=== PATIENT | female | born 1930 | race Caucasian/White ===

== ENCOUNTER 2018-07-30 09:16 | Outpatient (CLI) | payer MEDICARE, OTHER ==
--- NOTE | 2018-07-30 12:07 | ULT ---
RIGHT UPPER QUADRANT ULTRASOUND: HISTORY: Elevated LFTs. Abdominal pain. FINDINGS: Real-time imaging of the right upper quadrant shows the gallbladder to have been removed. The common duct is dilated. It measures in the 1 cm range. This could be on the basis of the cholecystectomy. The liver is mildly heterogeneous and measures approximately 14 cm in length. No focal lesions. The right kidney is normal in size and is not obstructed. The pancreas is obscured. IMPRESSION: Postoperative cholecystectomy change with mild biliary ductal dilatation. The common duct measures i n the 1 cm range. This could be on the basis of the cholecystectomy. Correlation with bilirubin jian ues would be recommended. POS: SHAYY
== END 2018-07-30 09:17 | disposition home or self-care (01) ==
LOC: ULT 09:16
PROVIDERS: ATTEND Internal Medicine Rheumatology
DX: R10.9 Unspecified abdominal pain (principal); R94.5 Abnormal results of liver function studies; K83.8 Other specified diseases of biliary tract; Z90.49 Acquired absence of other specified parts of digestive tract
CPT/HCPCS: 76705

== ENCOUNTER 2018-10-01 08:23 | Outpatient (CLI) | payer MEDICARE, OTHER | END 2018-10-01 08:24 | disposition home or self-care (01) | LOC: BICMAMMO 08:23 | PROVIDERS: ATTEND Family Medicine | DX: Z12.31 Encounter for screening mammogram for malignant neoplasm of breast (principal); Z80.3 Family history of malignant neoplasm of breast | CPT/HCPCS: 77063; 77067 ==

== ENCOUNTER 2019-08-07 08:51 | Outpatient (CLI) | payer MEDICARE, OTHER ==
--- NOTE | 2019-08-07 09:21 | BD ---
DEXA BONE DENSITY SCAN: Date: 08/07/2019 COMPARISON: None HISTORY: Asymptomatic menopausal state. FINDINGS: Lumbar Spine BMD (g/cm2) L1 1.139 T-Score 1.4 L2 1.229 T-Score 1.8 L3 1.184 T-Score 0.9 L4 1.113 T-Score 0.5 L1-L4 1.176 T-Score 1.2 Femoral Neck 0.738 T-Score -1.0 Total Femur 0.998 T-Score 0.5 FRAX-WHO fracture risk assessment tool was not reported as all T-scores are at or above -1.0 IMPRESSION: Normal bone mineral density exam. Transcribed Date/Time: 08/07/2019 11:01 AM
== END 2019-08-07 08:52 | disposition home or self-care (01) ==
LOC: BICMAMMO 08:51
PROVIDERS: ATTEND Internal Medicine Rheumatology
DX: Z13.820 Encounter for screening for osteoporosis (principal); Z78.0 Asymptomatic menopausal state; M85.859 Other specified disorders of bone density and structure, unspecified thigh
CPT/HCPCS: 77080

== ENCOUNTER 2019-10-05 13:52 | Outpatient (CLI) | payer MEDICARE, OTHER ==
--- NOTE | 2019-10-05 17:31 | MMO ---
Bilateral MAMMO Bilat Screen [id number]. CLINICAL HISTORY: Patient is 89 years old and is seen for screening. The patient has the following family history of breast cancer: mother, at age 65, malignant (generic). The patient has no personal history of cancer. 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 VIEWS: The views performed were: bilateral craniocaudal with tomosynthesis and bilateral mediolateral oblique with tomosynthesis. FILMS COMPARED: The present examination has been compared to a prior imaging study performed at [facility] on 10/01/2018. This study has been interpreted with the assistance of computer-aided detection. MAMMOGRAM FINDINGS: The breasts are almost entirely fat. There are no suspicious masses, suspicious calcifications, or new areas of architectural distortion. IMPRESSION: THERE IS NO MAMMOGRAPHIC EVIDENCE OF MALIGNANCY. A ROUTINE FOLLOW-UP MAMMOGRAM IN 1 YEAR IS RECOMMENDED. THE RESULTS OF THIS EXAM WERE SENT TO THE PATIENT. ACR BI-RADS Category 1 - Negative MAMMOGRAPHY NOTE: 1. A negative mammogram report should not delay a biopsy if a dominant of clinically suspicious mass is present. 2. Approximately 10% to 15% of breast cancers are not detected by mammography. 3. Adenosis and dense breasts may obscure an underlying neoplasm. Reported by: GAIL TONY MD Electonically Signed: [id number]
== END 2019-10-05 13:53 | disposition home or self-care (01) ==
LOC: BICMAMMO 13:52
PROVIDERS: ATTEND Family Medicine
DX: Z12.31 Encounter for screening mammogram for malignant neoplasm of breast (principal); Z80.3 Family history of malignant neoplasm of breast
CPT/HCPCS: 77063; 77067

== ENCOUNTER 2019-11-23 07:35 | Inpatient (IN) | payer MEDICARE, OTHER ==
[2019-11-23] MEDS ORDERED: Ondansetron PF 4 MG/2 ML Vial ONE (08:08)
[2019-11-23] MEDS ORDERED: Fentanyl 100 MCG/2 ML VIAL ONE ×3 (08:08→11:13)
[2019-11-23 08:19] LABS: Hemoglobin 13.4 g/dL (12.0-16.0); Mean Corpuscular HGB CONC 32.8 g/dL (32.0-36.0); Mean Corpuscular Hemoglobin 33.5 pg (27.0-31.0); Mean Platelet Volume 8.2 fL (7.4-10.4); Platelet Count 201 thou/uL (130-400); RBC Distribution Width 13.5 % (11.5-14.5); Red Blood Cell (RBC) Count 4.01 mill/uL (4.20-5.40); White Blood Cell (WBC) Count 14.8 thou/uL (4.8-10.8)
[2019-11-23 08:37] LABS: ALT (SGPT) 66 U/L (8-55); AST (SGOT) 76 U/L (5-34); Albumin 3.4 g/dL (3.4-4.8); Alkaline Phosphatase 423 U/L (40-110); Anion Gap 15 mmol/L (10-20); BUN (Urea Nitrogen) 19 mg/dL (9.8-20.1); Calc. Creatinine Clearance 0 mL/min (70-130); Calcium 9.5 mg/dL (7.8-10.44); Carbon Dioxide 27 mmol/L (23-31); Chloride 94 mmol/L (98-107); Estimated GFR-MDRD 77; Globulin 3.8 g/dL (2.4-3.5); Glucose 108 mg/dL (83-110); Potassium 3.4 mmol/L (3.5-5.1); Protein, Total 7.2 g/dL (6.0-8.3); Sodium 133 mmol/L (136-145)
[2019-11-23 08:39] LABS: Band 13 % (5-11); Lymphocytes 5 % (21-51); MDiff Complete? YES; Macrocytosis SLIGHT = 6-15 cells (100X) (0-5/hpf); Monocytes 5 % (0-10); Neutrophil 77 % (42-75)
[2019-11-23 08:51] LABS: Lipase 3900 U/L (8-78)
[2019-11-23 10:21] LABS: Bilirubin 2+ (Negative); Blood, Urine Negative (Negative); Clarity Clear (Clear); Glucose, Urine (Dipstick) Normal (Negative); Leukocyte Negative Leu/uL (Negative); Nitrite Negative (Negative); Protein, Urine (Dipstick) 20 mg/dL (Neg-Trace); Urobilinogen 6 mg/dL (Less than 2)
--- NOTE | 2019-11-23 10:52 | CT ---
CT ABDOMEN AND PELVIS WITH IV CONTRAST 11/23/2019 CLINICAL INFORMATION: Abdominal pain for last 2 days. Patient states pain begins at the level of the umbilicus and extends inferiorly with radiation of pain to the back. Nausea. COMPARISON: 07/07/2014. Technique: Multiple contiguous axial CT images are obtained through the abdomen and pelvis with IV contrast. Cor onal reformatted images are provided. FINDINGS: Lower Chest: A trace right pleural effusion is present. Volume loss is seen at each lung base. The he art is enlarged. Calcifications mitral valve annulus are seen. Vessels: Vascular calcifications and atherosclerotic plaque is seen in the abdominal aorta and involv ing the iliac arteries. Abdomen: Portal vein:Patent Gallbladder: Surgically absent. Liver: There is intra and extrahepatic biliary ductal dilatation without focal hepatic mass visualize d. The common duct at the level of the pancreatic head measures 1.6 cm. There are 2 separate rounded areas of increased density seen in the distal common duct largest measuring 1.3 cm. Findings are most likely related to choledocholithiasis, but a mass lesion cannot be entirely excluded. Endoscopy is recommended. Spleen: within normal limits. Pancreas: There is mild dilatation of the pancreatic duct secondary to the above-described findings. No definite pancreatic mass is appreciated. Adrenals: within normal limits. Kidneys: There is been mild interval enlargement of a right parapelvic cystic lesion measuring 1.6 cm which does demonstrate attenuation coefficient most compatible with a cyst. There has been slight enlargement when compared to the prior exam. Kidneys otherwise have a normal CT appearance bilaterall y for phase of imaging. Bowel: Small hiatal hernia is present. Loops of small bowel are normal in caliber. A few scattered co lonic diverticuli are seen. There are loops of small bowel seen lateral to the descending colon. Appendix: There is suggestion of a small appendiceal stump without CT findings to suggest appendiciti s Peritoneum: No ascites or free air; no fluid collection. Mesentery and Retroperitoneum: No enlarged mesenteric or retroperitoneal lymph nodes. Abdominal Wall: within normal limits. Pelvis: Reproductive Organs: Evidence of hysterectomy. Pelvis within normal limits. Bladder: Decompressed. Bones: Postsurgical changes right hip are noted with antegrade intramedullary chandni with a proximal int erlocking screw. There is evidence of a fracture of the distal interlocking screw, but this is a stable finding compared to the study in 2013. Multilevel degenerative changes are seen throughout the visualized lower thoracic as well as involving the lumbar spine. There is mild grade 1 anterolisthesis of L5 on S1 and to a lesser degree trace anterolisthesis of L4 and L5 related promine nt facet hypertrophic changes. A 1.5 cm lytic lesion is seen in the L2 vertebral body which is difficult to further characterize on this exam. Nonemergent MRI is suggested for further evaluation. IMPRESSION: 1. Intra and extrahepatic biliary ductal dilatation with rounded areas of increased density material in the distal common duct which most likely represents choledocholithiasis. A mass lesion cannot be entirely excluded. Endoscopy is recommended for further evaluation. 2. Lytic lesion in the L2 vertebral body measuring 1.5 cm. This difficult to further characterize on this exam. Nonemergent MRI lumbar spine is recommended. 3. Small hiatal hernia. 4. Small cardiomegaly. 6. Mild enlargement of a right parapelvic renal cyst. 7. Additional findings as described above. 8. Above findings discussed with Dr. Conner in the emergency department on 11/23/2019 at 1047 hours.
[2019-11-23] MEDS ORDERED: metroNIDAZOLE 500 MG/100 ML BAG ONE (12:15)
[2019-11-23] MEDS ORDERED: Acetaminophen 325 MG TAB PO PRN (12:58)
[2019-11-23] MEDS ORDERED: Acetaminophen 650 MG Suppository PR PRN (12:58)
[2019-11-23] MEDS ORDERED: Bisacodyl 5 MG TAB PO PRN (12:58)
[2019-11-23] MEDS ORDERED: Sodium Chloride 0.9% 1,000 ML IV SCH (13:00)
[2019-11-23] MEDS ORDERED: Ketorolac Tromethamine 30 MG/ML VIAL IVP PRN (13:00)
[2019-11-23] MEDS ORDERED: Fentanyl 100 MCG/2 ML VIAL SLOW IVP PRN ×2 (13:00→13:01)
--- NOTE | 2019-11-23 13:50 | CON ---
DATE OF CONSULTATION: 11/23/2019 REASON FOR CONSULTATION: Choledocholithiasis. HISTORY OF PRESENT ILLNESS: Breann Mosquera is a very pleasant 89-year-old woman, a patient of my GI colleague, Dr. Sissy Ceballos. 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 Back in June 2014, she was hospitalized here with biliary pancreatitis and LFT elevation. She underwent laparoscopic cholecystectomy with Dr. Kwok on 07/08/2014 with a negative intraoperative cholangiogram at that time. The patient reports no chronic gastrointestinal symptoms of any significance, but for the past several weeks intermittently off and on, she has been having abdominal pain in the upper abdomen and periumbilical area. Then over the past 3 days, it has gotten much more severe and much more frequent at least every hour. There has been associated nausea and she had a single episode of nonbloody emesis. There has been no fever through all this, but the pain progressed to the point that she came into the emergency department today. Upon presentation, she is found to be afebrile and hemodynamically stable, but with lipase elevated as 3900 and significant LFT elevation as well with total bilirubin 9.0, alkaline phosphatase 423. She had a CT of the abdomen and pelvis and this demonstrates absent gallbladder, but intra and extra hepatic biliary dilation with the common bile duct measuring up to 1.6 cm and a couple of rounded filling defects in the distal common bile duct, which likely represent stones. The patient has received Levaquin and Flagyl and is being admitted to the medical floor. We are consulted due to the finding of what appears to be choledocholithiasis. REVIEW OF SYSTEMS: Full review of systems including constitutional, head, eyes, ears, nose, throat, GI, , cardiovascular, respiratory, musculoskeletal, neurologic systems is negative except as noted in the HPI. PAST MEDICAL HISTORY: Cholecystectomy with negative intraoperative cholangiogram in June 2014, GERD, Waterman's esophagus, cervical radiculopathy, hypothyroidism, hysterectomy, bilateral knee surgery, shoulder surgery, history of colon polyps, hypertension, rhinoseptoplasty, and bilateral cataract. SOCIAL HISTORY: The patient lives at home. No smoking, alcohol, or drug use. FAMILY HISTORY: Includes coronary artery disease. She had a daughter with colon cancer. ALLERGIES: PENICILLIN, MORPHINE, CODEINE, AND SULFA. OUTPATIENT MEDICATIONS: 1. Atenolol. 2. Furosemide 40 mg daily. 3. Levothyroxine. 4. Omeprazole 20 mg daily. 5. Potassium chloride 10 mEq daily. 6. Folic acid 1 mg daily. 7. Hydrocodone/acetaminophen every 6 hours p.r.n. 8. Vitamin D3 of 5000 units daily. 9. Coenzyme Q10. 10. Calcium. 11. Aspirin 81 mg daily. 12. Fish oil. PHYSICAL EXAMINATION: VITAL SIGNS: Temperature 98.8, pulse 73, blood pressure 112/66, and oxygen saturation 98% on room air. GENERAL: An 89-year-old woman, lying in bed comfortably, in no distress. MENTAL: She is alert and fully oriented, pleasant and conversational. She can give a detailed coherent history. SKIN: She is slightly jaundiced. No rash visible or palpable. EYES: Scleral icterus. Extraocular movements intact. ENT: Mucous membranes moist. No oral lesions. LYMPH: No submandibular or supraclavicular lymphadenopathy. THYROID: Nontender to palpation. HEART: Regular rate and rhythm. LUNGS: Clear to auscultation bilaterally. ABDOMEN: Bowel sounds are present. Soft. Tender to palpation in the upper abdomen and periumbilical area, but no guarding or rebound tenderness. EXTREMITIES: No peripheral edema. VESSELS: Radial pulses 2+ bilaterally. NEURO: Cranial nerves II through XII intact bilaterally. No focal deficits. LABORATORY STUDIES: WBC 14.8, hemoglobin 13.4, and platelets 201. BUN 19, creatinine 0.72, total bilirubin 9.0, alkaline phosphatase 423, AST 76, ALT 66, and albumin 3.4. Lipase is 3900. Urinalysis negative. IMAGING STUDIES: CT of the abdomen and pelvis demonstrates absent gallbladder. There is intra and extrahepatic biliary dilation with common bile duct measuring 1.6 cm. There are 2 densities in the distal common bile duct, likely representing stones measuring up to 1.3 cm. There is mild pancreatic ductal dilation. ASSESSMENT AND PLAN: 1. Biliary pancreatitis, recurrent. 2. Choledocholithiasis, based on characteristic CT features as well as elevated LFTs. The patient's presentation does seem consistent with acute recurrent biliary pancreatitis secondary to choledocholithiasis, given the CT findings as well as characteristic LFT elevation. She does have a mild leukocytosis, but no fever and she is hemodynamically stable. Pain is fairly well controlled, and I see no evidence of cholangitis. I agree with antibiotics, which have been initiated as well as supportive care with n.p.o. status and IV fluids. Trend the LFTs tomorrow. We will need to proceed with endoscopic retrograde cholangiopancreatography for clearance of the common bile duct and sphincterotomy, we will plan to get this done tomorrow. Thank you for the consultation. Please call anytime with questions or concerns or significant changes in the patient's clinical status. Job ID: [id number]
[2019-11-23 14:37] VITALS: BMI 29.0
[2019-11-23] MEDS ORDERED: Iopamidol-370 76% 500 ML 1 ML ONE (14:53)
[2019-11-23] MEDS ORDERED: Iopamidol 370 76% 50 ML VIAL FS ONE (14:53)
[2019-11-23] MEDS ORDERED: Ondansetron ODT 4 MG TAB PO PRN (15:02)
[2019-11-23] MEDS ORDERED: Promethazine HCl 25 MG/ML VIAL IM/IV PRN (15:04)
--- NOTE | 2019-11-23 15:31 | HP ---
PRIMARY CARE PROVIDER: Dr. Jimmy Coats. CHIEF COMPLAINT: Abdominal pain. HISTORY OF PRESENT ILLNESS: Ms. Mosquera is a pleasant 89-year-old lady, who was seen at [facility] on November 23, 2019. She underwent cholecystectomy in July 2014 for acute cholecystitis with biliary pancreatitis. She reports doing well following the surgery. Over the last couple of weeks, however, she started having abdominal pain. She describes it as below the umbilicus, nonradiating, 7/10 at its worst, sharp, no known aggravating or relieving factors. She was nauseous 3 days ago and vomited once 3 days ago. She denies any fevers. She presented to the emergency room because of ongoing abdominal pain. REVIEW OF SYSTEMS: All systems were reviewed and found to be negative except for the pertinent positives mentioned above. PAST MEDICAL HISTORY: Hiatal hernia, hypothyroidism, gastroesophageal reflux disease, and hypertension. PAST SURGICAL HISTORY: Cholecystectomy, rhinoseptoplasty, EGD, colonoscopy, hysterectomy, bilateral knee surgery, right shoulder surgery, left shoulder surgery, and bilateral cataract surgery. SOCIAL HISTORY: The patient denies tobacco use, alcohol use, or recreational drug use. FAMILY HISTORY: Significant for malignancy and coronary artery disease. ALLERGIES: CODEINE, LATEX, MORPHINE, PENICILLIN, AND SULFA. HOME MEDICATIONS: These need to be clarified, but appeared to include; 1. [place] p.r.n. 2. Zofran p.r.n. 3. Aspirin 325 mg daily. 4. Calcium 1200 mg daily. 5. Vitamin D3 5000 units daily. 6. Lasix 20 mg daily. 7. Levothyroxine 100 mcg daily. 8. Losartan 25 mg daily. 9. Centrum Silver 1 tablet daily. 10. Potassium chloride 10 mEq daily. 11. Tramadol p.r.n. 12. Coenzyme Q10 200 mg daily. 13. Ambien 5 to 10 mg at bedtime. PHYSICAL EXAMINATION: GENERAL: On examination, Ms. Mosquera is awake and alert, not in acute distress. VITAL SIGNS: She is afebrile. Blood pressure is 100/62, pulse 70, respiratory rate 16, and oxygen saturation 97% on room air. EYES: She has scleral icterus, no conjunctival pallor. ENT: Dry mucosal membranes. No oropharyngeal erythema or exudates. NECK: Supple, nontender, trachea is midline. RESPIRATORY: Accessory muscles of breathing are not active. Chest wall movements are symmetric bilaterally. Lungs are clear to auscultation without wheeze, rhonchi, or crepitations. CARDIOVASCULAR: S1 and S2 are heard, regular. Peripheral pulses palpable. ABDOMEN: Soft, epigastric tenderness. No guarding or rigidity. Bowel sounds are heard. NEUROLOGIC: Cranial nerves 2 through 12 are intact. MUSCULOSKELETAL: Power is 5/5 in all 4 extremities. SKIN: Cutaneous icterus. LYMPHATIC: No cervical lymphadenopathy. PSYCHIATRIC: Normal mood, normal affect, the patient is oriented to person, place, and time. LABORATORY DATA: Ms. Mosquera's labs and investigations were reviewed. CT scan of the abdomen and pelvis showed intra and extrahepatic biliary ductal dilatation with rounded areas of increased density material in the distal common duct, which most likely represents choledocholithiasis. A mass lesion cannot be entirely excluded. Radiologist recommends endoscopy. She also had a lytic lesion in the L2 vertebral body measuring 1.5 cm, difficult to further characterize on this exam. She had small hiatal hernia, small cardiomegaly, mild enlargement of right parapelvic renal cyst. She has leukocytosis with 14,800 white cells, of which 77% are neutrophils and 13% are band neutrophils. Hemoglobin and platelet count are normal. Sodium is decreased at 133, potassium is decreased at 3.4, creatinine is normal. Total bilirubin is elevated at 9.0, AST is elevated at 76, ALT is elevated at 66, and alkaline phosphatase is elevated at 423. Lipase is elevated at 3900. ASSESSMENT AND PLAN: Ms. Mosquera is a pleasant 89-year-old lady, who was seen at [facility] on November 23, 2019. Her problem list includes: 1. Abnormal liver function tests: This is most likely secondary to choledocholithiasis. The patient will be admitted to the hospital for further management. We will also consult Gastroenterology Service for opinion and help with management. She will be kept n.p.o. LFTs will be trended. She has been started on antibiotics for possible infection. I will continue the same. 2. Hypokalemia, mild, we will replace potassium. 3. Hyponatremia, mild, likely asymptomatic. 4. Hypothyroidism: Continue levothyroxine. 5. Hypertension: Continue atenolol, monitor vital signs and titrate antihypertensives as needed. Many thanks for allowing me to participate in your patient's care. Please feel free to contact me with any questions or concerns. LEVEL OF RISK: Moderate. LEVEL OF COMPLEXITY: Moderate. Job ID: [id number]
[2019-11-23] MEDS: NS 0.9% w/ 20 MEQ KCL 1,000 ML/1,000 ML BAG IV SCH (17:57)
[2019-11-23] MEDS: metroNIDAZOLE 500 MG in Premix Bag 1 BAG IVPB SCH (20:32)
[2019-11-23] MEDS: Zolpidem Tartrate 5 MG TAB PO SCH (20:34)
[2019-11-24] MEDS: metroNIDAZOLE 500 MG in Premix Bag 1 BAG IVPB SCH ×3 (03:44→20:17)
[2019-11-24] MEDS: NS 0.9% w/ 20 MEQ KCL 1,000 ML/1,000 ML BAG IV SCH ×3 (03:44→20:19)
[2019-11-24] MEDS: Levothyroxine Sodium 100 MCG TAB PO SCH (05:17)
[2019-11-24 05:47] LABS: #Lymphocytes 0.9 thou/uL (1.20-3.40); #Monocytes 0.6 thou/uL (0.11-0.59); #Neutrophils 5.2 thou/uL (1.40-6.50); %Basophils 0.1 % (0.0-1.0); %Eosinophils 0.5 % (0.0-10.0); %Lymphocytes 12.8 % (21.0-51.0); %Monocytes 9.5 % (0.0-10.0); %Neutrophils 77.2 % (42.0-75.0); Hemoglobin 10.4 g/dL (12.0-16.0); Mean Corpuscular HGB CONC 31.2 g/dL (32.0-36.0); Mean Corpuscular Hemoglobin 32.1 pg (27.0-31.0); Platelet Count 176 thou/uL (130-400); RBC Distribution Width 13.4 % (11.5-14.5); Red Blood Cell (RBC) Count 3.23 mill/uL (4.20-5.40); White Blood Cell (WBC) Count 6.8 thou/uL (4.8-10.8)
[2019-11-24 06:22] LABS: ALT (SGPT) 37 U/L (8-55); AST (SGOT) 38 U/L (5-34); Albumin 2.4 g/dL (3.4-4.8); Alkaline Phosphatase 299 U/L (40-110); Anion Gap 13 mmol/L (10-20); BUN (Urea Nitrogen) 17 mg/dL (9.8-20.1); Bilirubin, Total 4.9 mg/dL (0.2-1.2); Calc. Creatinine Clearance 73 mL/min (70-130); Calcium 8.2 mg/dL (7.8-10.44); Carbon Dioxide 23 mmol/L (23-31); Chloride 104 mmol/L (98-107); Estimated GFR-MDRD Greater than 90; Globulin 2.9 g/dL (2.4-3.5); Glucose 73 mg/dL (83-110); Lipase 764 U/L (8-78); Potassium 3.1 mmol/L (3.5-5.1); Protein, Total 5.3 g/dL (6.0-8.3); Sodium 137 mmol/L (136-145)
[2019-11-24] MEDS ORDERED: Iothalamate Meglumine 60% 50 ML VIAL FS ONE (07:12)
[2019-11-24] MEDS ORDERED: Indomethacin 50 MG SUPP ONE (09:05)
[2019-11-24] MEDS ORDERED: SUGAMMADEX SODIUM 200 MG/2 ML VIAL ONE (09:16)
[2019-11-24] MEDS ORDERED: PROPOFOL 200 MG/20 ML VIAL ONE (09:45)
[2019-11-24] MEDS ORDERED: Rocuronium Bromide 10 MG/ML (10ML VIAL) ONE (09:45)
[2019-11-24] MEDS ORDERED: Ondansetron PF 4 MG/2 ML Vial ONE (09:45)
--- NOTE | 2019-11-24 10:39 | RAD ---
EXAM: ERCP HISTORY: Choledocholithiasis COMPARISON: CT abdomen/pelvis 11/23/2019 FINDINGS: Limited intraoperative fluoroscopic views were taken during a an ERCP. The common bile duct is enlarged in caliber with multiple filling defects initially seen. These are n ot seen on the latter images. No leakage from the common bile duct. There is moderate intrahepatic biliary dilatation. IMPRESSION: Multiple common bile duct stones appear to have been removed during this procedure.
[2019-11-24] MEDS: Atenolol 25 MG TAB PO SCH (11:40)
[2019-11-24] MEDS: Aspirin Chewable 81 MG TAB PO SCH (11:40)
[2019-11-24] MEDS: Fish Oil 1,000 MG CAP PO SCH (11:41)
[2019-11-24] MEDS: Calcium Carbonate 600 MG TAB PO SCH (11:41)
[2019-11-24] MEDS: Folic Acid 1 MG TAB PO SCH (11:41)
[2019-11-24] MEDS: Multivitamin W/ Minerals 1 TAB PO SCH (11:41)
[2019-11-24] MEDS: Ubidecarenone 50 MG CAP PO SCH (11:47)
--- NOTE | 2019-11-24 15:23 | PDOC.HOSPP ---
- Subjective Encounter Date: 11/24/19 Encounter Time: 15:21 Subjective: Pt seen for followup re: choledocholithiasis. Feels better. No abdo pain. - Objective Vital Signs & Weight: Vital Signs (12 hours) Temp Pulse Resp BP Pulse Ox 11/24/19 13:00 62 18 128/70 96 11/24/19 12:05 59 L 18 123/73 96 11/24/19 11:40 64 11/24/19 11:33 97.9 F 64 18 121/77 98 11/24/19 08:00 98 11/24/19 07:54 97.9 F 70 18 115/72 97 11/24/19 04:00 97.7 F 72 16 108/68 96 Weight Weight 159 lb I&O: 11/23/19 11/24/19 11/25/19 06:59 06:59 06:59 Intake Total 1250 Balance 1250 Result Diagrams: 11/24/19 05:15 11/24/19 05:15 Additional Labs: Labs and MARs reviewed by de Hospitalist ROS - Review of Systems Cardiovascular: denies: chest pain, palpitations, orthopnea, paroxysmal noc. dyspnea, edema, light headedness Gastrointestinal: denies: nausea, vomiting, abdominal pain, diarrhea, constipation, melena, hematochezia - Medication Medications: Active Medications Generic Name Dose Route Start Last Admin Trade Name Freq PRN Reason Stop Dose Admin Aspirin 81 mg 11/24/19 09:00 11/24/19 11:40 Aspirin Chewable PO Not Given DAILY [facility] Atenolol 25 mg 11/24/19 09:00 11/24/19 11:40 Tenormin PO Not Given DAILY [facility] Calcium Carbonate 1,200 mg 11/24/19 09:00 11/24/19 11:41 Caltrate PO Not Given DAILY [facility] Cholecalciferol 5,000 units 11/24/19 09:00 11/24/19 11:41 Vitamin D3 PO Not Given DAILY [facility] Coenzyme Q10 200 mg 11/24/19 09:00 11/24/19 11:47 Coenzyme Q10 PO Not Given DAILY [facility] Fentanyl 12.5 mcg 11/23/19 13:01 11/23/19 14:59 Sublimaze SLOW IVP 12.5 mcg Q8H PRN Administration Pain Fish Oil 1,000 mg 11/24/19 09:00 11/24/19 11:41 Fish Oil PO Not Given DAILY [facility] Folic Acid 1 mg 11/24/19 09:00 11/24/19 11:41 Folvite PO Not Given DAILY [facility] Metronidazole 500 mg/ Device 100 mls @ 100 mls/hr 11/23/19 20:00 11/24/19 11: 44 IVPB 100 mls 0400,1200,2000 DEANNA Administration Levofloxacin 500 mg/ Device 100 mls @ 100 mls/hr 11/24/19 11:00 11/24/19 11: 42 IVPB 100 mls 1100 DEANNA Administration Potassium Chloride/Sodium Chloride 1,000 ml in 1,000 mls @ 100 mls/hr 15:00 11/24/19 11:45 Ns 0.9% W/ 20 Meq Kcl IV Not Given .Q10H [facility] Iron/Minerals/Multivitamins 1 tab 11/24/19 09:00 11/24/19 11:41 Theragran M PO Not Given DAILY [facility] Levothyroxine Sodium 100 mcg 11/24/19 06:00 11/24/19 05:17 Synthroid PO 100 mcg 0600 DEANNA Administration Pantoprazole Sodium 40 mg 11/24/19 09:00 11/24/19 11:47 Protonix PO 40 mg DAILY [facility] Administration Zolpidem Tartrate 5 mg 11/23/19 21:00 11/23/19 20:34 Ambien PO 5 mg HS DEANNA Administration - Exam General Appearance: NAD Eye: scleral icterus ENT: normocephalic atraumatic Neck: supple Heart: RRR Respiratory: CTAB, no rales Gastrointestinal: soft, non-tender, normal bowel sounds Extremities: no edema Skin: no rashes Psychiatric: normal affect, normal behavior Hosp A/P (1) Choledocholithiasis Code(s): K80.50 - CALCULUS OF BILE DUCT W/O CHOLANGITIS OR CHOLECYST W/O OBST Status: Acute (2) Acute biliary pancreatitis Code(s): K85.10 - BILIARY ACUTE PANCREATITIS WITHOUT NECROSIS OR INFECTION Status: Acute (3) HTN (hypertension) Code(s): I10 - ESSENTIAL (PRIMARY) HYPERTENSION Status: Chronic (4) Hypothyroidism Code(s): E03.9 - HYPOTHYROIDISM, UNSPECIFIED Status: Chronic (5) GERD (gastroesophageal reflux disease) Code(s): K21.9 - GASTRO-ESOPHAGEAL REFLUX DISEASE WITHOUT ESOPHAGITIS Status: Chronic - Plan LFTs improving. s/p ERCP. Lipase improving. No fever. HTN controlled. Continue protonix.
--- NOTE | 2019-11-24 15:48 | OP ---
DATE OF PROCEDURE: 11/24/2019 PROCEDURES PERFORMED: 1. Endoscopic retrograde cholangiopancreatography with sphincterotomy. 2. Removal of biliary calculus. INDICATIONS FOR PROCEDURE: Choledocholithiasis, elevated LFTs. DESCRIPTION OF PROCEDURE: After the risks and benefits of the procedure were explained to the patient including risks of bleeding, infection, perforation, reactions to anesthesia, aspiration, post-ERCP pancreatitis, and/or pain, informed consent was obtained. The patient was then taken to the endoscopy suite, where a general anesthesia followed by endotracheal intubation was performed. Once the patient was intubated and sedated, she was maneuvered into the prone position in anticipation of the ERCP. Once in adequate position, the standard duodenoscope was introduced into the mouth with intubation of the esophagus, stomach, and the proximal small intestines with the findings listed below. The patient tolerated the procedure well with no immediate perioperative complications. Upon conclusion of the procedure, all equipment was removed from the patient and she was transferred to PACU in satisfactory condition. EGD FINDINGS: Limited views were obtained of the esophagus, stomach, and the proximal small intestine given the side-viewing aspect of the duodenoscope. Of the mucosa visualized, normal-appearing mucosa was seen in the proximal, mid, and distal esophagus. Normal-appearing mucosa was also seen within the stomach as well as the first and second portions of the duodenum. ERCP FINDINGS: The ampulla was easily identified within the second portion of the duodenum and was adjacent to a periampullary diverticulum. However, the ampulla itself was outside of the diverticulum. The ampullary orifice did exhibit mild mucosal erythema surrounding the orifice itself for approximately 1 mm in a radial dimension. The orifice itself also seemed somewhat widened, but no biliary fluid was seen, initially draining from the ampulla itself. Using a 5-mm sphincterotome, the ampulla was then successfully cannulated with a guidewire placed within the intrahepatic biliary tree. With advancing the sphincterotome into the distal common bile duct, a cholangiogram was performed, which showed multiple filling defects within the common bile as well as the common hepatic ducts. Again, using the sphincterotome, a generous sphincterotomy was then performed followed by exchanging the sphincterotome for a 9- to 12-mm biliary balloon via an exchange technique over guidewire. Once the balloon was in adequate position, it was advanced into the distal common bile duct over the guidewire, and using successive balloon sweeps, a large amount of biliary sludge/stone debris was removed from both the common bile and common hepatic ducts. In the proximal common hepatic duct, 3-4 small black pigmented stones were also removed in addition to large amount of sludge/stone debris (creating more of a mush). At the end of the procedure, successive balloon sweeps were not obtaining any additional material. An occlusion cholangiogram was then performed, which showed absence of filling defects within the common bile and common hepatic ducts, at which point the guidewire and the balloon were withdrawn. Repeat imaging of the common bile duct afterward showed good drainage of the biliary tree. All equipment was then removed from the patient and she was transferred to PACU. IMPRESSION: Choledocholithiasis and biliary sludge, resulting in biliary obstruction, now status post sphincterotomy and removal of biliary calculi. RECOMMENDATIONS: 1. Would continue to trend her LFTs daily while inpatient to assess response to treatment. 2. Would assess for signs of clinical post-ERCP pancreatitis. 3. Would advance the patient's diet to clear liquid diet and advance as tolerated. 4. Would continue broad-spectrum antibiotics while the patient is still in the hospital. We will continue to follow. Please call with any questions. Job ID: [id number]
[2019-11-24] MEDS: Zolpidem Tartrate 5 MG TAB PO SCH (20:18)
[2019-11-25] MEDS: metroNIDAZOLE 500 MG in Premix Bag 1 BAG IVPB SCH ×3 (03:25→12:58)
[2019-11-25] MEDS: Levothyroxine Sodium 100 MCG TAB PO SCH (05:12)
[2019-11-25] MEDS: Atenolol 25 MG TAB PO SCH (08:19)
[2019-11-25] MEDS: Calcium Carbonate 600 MG TAB PO SCH (08:19)
[2019-11-25] MEDS: Fish Oil 1,000 MG CAP PO SCH (08:19)
[2019-11-25] MEDS: Multivitamin W/ Minerals 1 TAB PO SCH (08:20)
[2019-11-25] MEDS: Folic Acid 1 MG TAB PO SCH (08:20)
[2019-11-25] MEDS: Aspirin Chewable 81 MG TAB PO SCH (08:20)
[2019-11-25] MEDS: Ubidecarenone 50 MG CAP PO SCH (08:21)
[2019-11-25] MEDS: NS 0.9% w/ 20 MEQ KCL 1,000 ML/1,000 ML BAG IV SCH (08:37)
[2019-11-25 09:00] LABS: #Eosinphils 0.1 thou/uL (0.0-0.7); #Lymphocytes 1.1 thou/uL (1.20-3.40); #Monocytes 0.7 thou/uL (0.11-0.59); %Basophils 0.6 % (0.0-1.0); %Eosinophils 1.4 % (0.0-10.0); %Lymphocytes 18.7 % (21.0-51.0); %Monocytes 11.2 % (0.0-10.0); Hemoglobin 11.8 g/dL (12.0-16.0); Mean Corpuscular Hemoglobin 33.7 pg (27.0-31.0); Mean Platelet Volume 7.7 fL (7.4-10.4); Platelet Count 218 thou/uL (130-400); RBC Distribution Width 13.6 % (11.5-14.5); Red Blood Cell (RBC) Count 3.51 mill/uL (4.20-5.40); White Blood Cell (WBC) Count 5.8 thou/uL (4.8-10.8)
[2019-11-25 09:19] LABS: ALT (SGPT) 34 U/L (8-55); AST (SGOT) 37 U/L (5-34); Albumin 2.8 g/dL (3.4-4.8); Alkaline Phosphatase 328 U/L (40-110); Anion Gap 12 mmol/L (10-20); BUN (Urea Nitrogen) 14 mg/dL (9.8-20.1); Bilirubin, Total 3.1 mg/dL (0.2-1.2); Calc. Creatinine Clearance 64 mL/min (70-130); Calcium 8.5 mg/dL (7.8-10.44); Carbon Dioxide 21 mmol/L (23-31); Chloride 107 mmol/L (98-107); Estimated GFR-MDRD 79; Globulin 3.1 g/dL (2.4-3.5); Glucose 114 mg/dL (83-110); Potassium 3.6 mmol/L (3.5-5.1); Protein, Total 5.9 g/dL (6.0-8.3); Sodium 136 mmol/L (136-145)
[2019-11-25 11:25] VITALS: TEMP 98.1
--- NOTE | 2019-11-25 12:05 | PRG ---
DATE OF SERVICE: 11/25/2019 SUBJECTIVE: Ms. Mosquera is doing quite well today following ERCP yesterday. She has had a couple of soft bowel movements. There is no abdominal pain or nausea or vomiting. She is tolerating her liquid diet and ready to advance diet for lunch today. OBJECTIVE: VITAL SIGNS: Temperature 98.1, pulse 61, blood pressure 105/62, and 97% oxygen saturation on room air. GENERAL: No acute distress. HEART: Regular rate and rhythm. LUNGS: Clear to auscultation bilaterally. ABDOMEN: Bowel sounds are present. Soft and nontender to palpation. EXTREMITIES: No peripheral edema. LABORATORY STUDIES: WBC is 5.8, hemoglobin 11.8, and platelets 218. Sodium 136, potassium 3.6, BUN 14, and creatinine 0.70. Total bilirubin is down to 3.1, alkaline phosphatase 328, AST 37, ALT 34, and lipase 413. ASSESSMENT/PLAN: 1. Biliary pancreatitis, clinically resolved. 2. Choledocholithiasis, with large amount of biliary sludge extracted on successful endoscopic retrograde cholangiopancreatography with biliary sphincterotomy performed yesterday by Dr. Chappell. The patient's LFTs have improved as expected after sphincterotomy and biliary sludge extraction. The patient's pancreatitis appears to have clinically resolved. I think the patient is doing well, tolerating her diet this afternoon. She could potentially be discharged from the hospital. We will plan to have her follow up in the GI Clinic with Dr. Ceballos in 2 to 3 weeks with repeat LFTs at that time. No other recommendations from a GI standpoint. GI will sign off, but please call back anytime with questions or concerns. Job ID: [id number]
[2019-11-25 16:10] VITALS: BP 126/77
--- NOTE | 2019-11-25 17:42 | DIS ---
DATE OF ADMISSION: 11/23/2019 DATE OF DISCHARGE: 11/25/2019 PRIMARY CARE PROVIDER: Dr. Jimmy Coats. DISCHARGE DIAGNOSES: 1. Choledocholithiasis. 2. Acute pancreatitis. CONDITION OF PATIENT ON THE DAY OF DISCHARGE: Stable. I assessed Ms. Mosquera on the day of discharge. She denies any chest pain. She denies any abdominal pain. Vital signs are stable. S1 and S2 are heard, regular. Lungs are clear to auscultation bilaterally. CONSULTATIONS DURING THIS HOSPITALIZATION: Gastroenterology, Dr. Cifuentes. POST-ACUTE CARE FOLLOWUP: With primary care provider in 3 days and with wellness nurse rn, Dr. Ceballos in 2 to 3 weeks. ACTIVITY: Ad mirtha. DIET: Heart healthy. DISCHARGE MEDICATIONS: No change was made to her pre-admission home medications as dictated in my history and physical note dated 11/23/2019. HOSPITAL COURSE: Ms. Mosquera is a pleasant 89-year-old lady, who was admitted to [facility] on 11/23/2019, for abdominal pain secondary to choledocholithiasis and acute biliary pancreatitis. She improved with intravenous fluids and pain medications. She was seen by Gastroenterology Service. On 11/24, she underwent ERCP with removal of biliary calculus and sphincterotomy. She continued to improve. She is tolerating diet well. She has been cleared for discharge home by Gastroenterology Service. On the day of discharge, she has white count 5800, hemoglobin 11.8, platelet count 218,000, normal sodium, normal potassium, creatinine 0.70, total bilirubin 3.1, AST 37, ALT 34, and alkaline phosphatase 328. Lipase trended down to 413 on the day of discharge. Many thanks for allowing me to participate in your patient's care. Please feel free to contact me with any questions or concerns. DISCHARGE DESTINATION: Home. TIME SPENT: Total amount of time spent coordinating this discharge: 32 minutes. Job ID: [id number]
== END 2019-11-25 15:53 | disposition home or self-care (01) | DRG 444 ==
LOC: ERS 07:35 → ERHOLD 09:47 → T4-B 13:41
PROVIDERS: ADMIT Internal Medicine; ATTEND Internal Medicine
PROC: 0FC98ZZ Extirpation of Matter from Common Bile Duct, Via Natural or Artificial Opening Endoscopic (ICD-10-PCS; principal; 2019-11-24)
DX: K80.51 Calculus of bile duct without cholangitis or cholecystitis with obstruction (principal); K85.10 Biliary acute pancreatitis without necrosis or infection; E87.1 Hypo-osmolality and hyponatremia; K80.20 Calculus of gallbladder without cholecystitis without obstruction; E03.9 Hypothyroidism, unspecified; K63.5 Polyp of colon; E87.6 Hypokalemia; K21.9 Gastro-esophageal reflux disease without esophagitis; I10 Essential (primary) hypertension; Z90.49 Acquired absence of other specified parts of digestive tract; Z90.710 Acquired absence of both cervix and uterus; Z98.42 Cataract extraction status, left eye; Z98.41 Cataract extraction status, right eye; Z88.0 Allergy status to penicillin; Z88.8 Allergy status to other drugs, medicaments and biological substances; Z88.6 Allergy status to analgesic agent; Z91.040 Latex allergy status; Z88.2 Allergy status to sulfonamides
CPT/HCPCS: 36415; 74177; 74330; 80053; 81003; 83690; 85025; 96361; 96365; 96367; 96375; 96376; J1885; J1956; J2405; J2704; J3010; J3480; Q9967

== ENCOUNTER 2019-12-02 11:50 | Outpatient (CLI) | payer MEDICARE, OTHER ==
--- NOTE | 2019-12-02 14:46 | CT ---
CT lumbar spine without contrast: HISTORY: Disorder of lumbar spine. COMPARISON: No prior CT exams of the lumbar spine available FINDINGS: Post cholecystectomy changes are noted. Vascular calcifications are seen. Paravertebral soft tissues have a normal appearance. There is atelectasis at the right lung base. Vertebral body heights are within normal limits with multilevel degenerative changes noted. There is trace grade 1 anterolisthesis of L4 on L5 and mild grade 1 anterolisthesis of L5 on S1 measuring 6 to 7 mm. No fracture is identified. As noted on CT abdomen on 11/23/2019, there is a lytic lesion in the L2 vertebral body measuring 1.5 c m. This lesion cannot be further characterized on this examination. Definitive characteristics suggestive of a hemangioma are not appreciated on this exam. T12-L1: Disc osteophyte complex is present resulting mild effacement of the ventral subarachnoid spac e. Neural foramina are patent. L1-2: There is loss of intervertebral disc height with evidence of vacuum phenomenon. Endplate degene rative changes are seen at this level. There is trace retrolisthesis of L1 on L2. Broad-based disc osteophyte complex is present which results in mild effacement of the ventral aspect of the thecal sa c. The left neural foramen is patent. There is moderate right-sided neural foraminal narrowing. L2-3: There is loss of intervertebral disc height with vacuum phenomenon in the intervertebral discs. Endplate degenerative changes are seen. There is a broad-based disc osteophyte complex and facet hypertrophic changes. Generalized narrowing of the central spinal canal is present. Mild to moderate right and mild left-sided neural foraminal narrowing is present. L3-4: There is a mild disc osteophyte complex. There are calcifications seen in the intervertebral di sc. Prominent facet hypertrophic changes are identified at this level. There is mild generalized narrowing of the central spinal canal. Mild bilateral neural foraminal narrowing is present greater o n the right. L4-5: There is loss of vertebral disc height and vacuum phenomenon with prominent endplate degenerati ve changes. Trace anterolisthesis of L4 on L5 is present. There is broad-based disc osteophyte complex and facet hypertrophic changes. Findings result in severe narrowing of the central spinal can al as well as moderate to severe narrowing of the left subarticular zone at this level. Moderate to severe left and mild right-sided neural foraminal narrowing are present. L5-S1: There is loss of intervertebral disc height with vacuum phenomenon in the intervertebral disc as well as prominent endplate degenerative changes. Grade 1 anterolisthesis of L5 on S1 is present. There are prominent facet hypertrophic changes. There is moderate central canal narrowing with modera te to severe bilateral neural foraminal narrowing. IMPRESSION: 1. Lytic lesion L2 vertebral body which cannot be accurately characterized on this examination. MRI l umbar spine is recommended for further evaluation. 2. Multilevel degenerative changes throughout the lumbar spine as described above with trace grade 1 anterolisthesis of L4 and L5 and mild grade 1 anterolisthesis of L5 on S1. Varying degrees of neural foraminal narrowing are seen with moderate to severe central canal narrowing at the L4-5 level and moderate central canal narrowing at the L5-S1 level.
== END 2019-12-02 11:51 | disposition home or self-care (01) ==
LOC: BICCT 11:50
PROVIDERS: ATTEND Family Medicine
DX: M53.9 Dorsopathy, unspecified (principal); M47.816 Spondylosis without myelopathy or radiculopathy, lumbar region; M47.817 Spondylosis without myelopathy or radiculopathy, lumbosacral region; M48.061 Spinal stenosis, lumbar region without neurogenic claudication; M48.07 Spinal stenosis, lumbosacral region; M43.17 Spondylolisthesis, lumbosacral region
CPT/HCPCS: 72131

== ENCOUNTER 2019-12-25 12:49 | Outpatient (CLI) | payer MEDICARE, OTHER ==
--- NOTE | 2019-12-25 14:31 | MRI ---
MR the lumbar spine without contrast: 12/25/2019 History: Back pain with radiculopathy, lytic lesion of the L2 vertebral body noted on recent CT exami nation COMPARISON: CT of lumbar spine 12/02/2019 TECHNIQUE: Multiplanar multisequence MR images were obtained of lumbar spine without IV contrast FINDINGS: On the basis of 5 lumbar type vertebral bodies, conus medullaris terminates at theL1-2 level. Sagittal STIR imaging demonstrates no focal area of osseous marrow edema. T12-L1:Disc space narrowing, disc desiccation, mild anterior osteophyte formation, and mild disc bulg e. Mild bilateral facet hypertrophy. No significant central canal or neural foraminal stenosis. L1-2:There is disc space narrowing with disc desiccation and mild posterior disc osteophyte complex. No significant central canal stenosis. Bilateral facet hypertrophy. Moderate/severe right neural foraminal stenosis. Mild left neural foraminal stenosis. L2-3:Prominent bilateral facet hypertrophy. Prominent degenerative endplate change with disc space na rrowing and disc desiccation. Disc osteophyte complex causes mild central canal stenosis. Moderate/severe bilateral neural foraminal stenosis. L3-4:Bilateral facet hypertrophy. Disc space narrowing with disc desiccation and mild disc bulge. Mil d central canal stenosis. Moderate bilateral neural foraminal stenosis. L4-5:Disc space narrowing with disc desiccation and disc bulge. Anterior osteophyte. 4 mm of anteroli sthesis noted. Prominent facet hypertrophy and hypertrophy of the ligamentum flavum. Severe central canal stenosis, mild right neural foraminal stenosis, and severe left neural foraminal stenosis. L5-S1:Disc space narrowing with disc desiccation. Anterolisthesis measuring 5 mm noted with a moderat e degree of central canal stenosis. Prominent bilateral facet hypertrophy with severe bilateral neural foraminal stenosis. Image retroperitoneal structures demonstratea probable cyst in the midpole of the right kidney measur ing 1.7 cm. There is mild intrahepatic and extrahepatic biliary prominence. Question a history of prior cholecyst ectomy. Correlation with LFTs may be beneficial. There is a T2 and T1 hyperintense lesion within the L2 vertebral body correlating with the finding on recent lumbar spine CT, consistent with a benign hemangioma. 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 Intra and extrahepatic saji iary prominence.
== END 2019-12-25 12:50 | disposition home or self-care (01) ==
LOC: BICMRI 12:49
PROVIDERS: ATTEND Family Medicine
DX: M89.9 Disorder of bone, unspecified (principal); M47.816 Spondylosis without myelopathy or radiculopathy, lumbar region; D18.09 Hemangioma of other sites
CPT/HCPCS: 72148

== ENCOUNTER 2020-10-10 13:14 | Outpatient (CLI) | payer MEDICARE, OTHER ==
--- NOTE | 2020-10-10 14:13 | BD ---
EXAM: DEXA bone density examination HISTORY: 89-year-old postmenopausal female for screening COMPARISON: 08/07/2019 FINDINGS: L1--bone mineral density 1.150 g/sq cm; T score 1.5 L2--bone mineral density 1.261 g/sq cm; T score 2.1 L3--bone mineral density 1.162 g/sq cm; T score 0.7 L4--bone mineral density 1.210 g/sq cm; T score 1.4 Total L1-L4--bone mineral density 1.192 g/sq cm; T score 1.3 Left femoral neck--bone mineral density0.715; T score -1.2 Total proximal left femur--bone mineral density 0.955; T score 0.1 IMPRESSION: Osteopenia. This patient has a 10 year WHO fracture risk of a major osteoporotic fracture of 14% and of a hip fracture of 4.0%. When compared to the prior examination, the bone density in the hip has decreased approximately 4.3% and the bone density in the spine has not changed significan tly.
--- NOTE | 2020-10-10 14:17 | MMO ---
Bilateral MAMMO Bilat Screen [id number]. CLINICAL HISTORY: Patient is 89 years old and is seen for screening. The patient has the following family history of breast cancer: mother, at age 65, malignant (generic). The patient has no personal history of cancer. 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 VIEWS: The views performed were: bilateral craniocaudal with tomosynthesis and bilateral mediolateral oblique with tomosynthesis. FILMS COMPARED: The present examination has been compared to prior imaging studies performed at [facility] on 09/09/2017, 09/17/2017, 10/01/2018 and 10/05/2019. This study has been interpreted with the assistance of computer-aided detection. MAMMOGRAM FINDINGS: There are scattered fibroglandular densities. There are benign appearing and vascular calcifications seen in both breasts. There are no suspicious masses, suspicious calcifications, or new areas of architectural distortion. IMPRESSION: THERE IS NO MAMMOGRAPHIC EVIDENCE OF MALIGNANCY. A ROUTINE FOLLOW-UP MAMMOGRAM IN 1 YEAR IS RECOMMENDED. THE RESULTS OF THIS EXAM WERE SENT TO THE PATIENT. ACR BI-RADS Category 2 - Benign finding MAMMOGRAPHY NOTE: 1. A negative mammogram report should not delay a biopsy if a dominant of clinically suspicious mass is present. 2. Approximately 10% to 15% of breast cancers are not detected by mammography. 3. Adenosis and dense breasts may obscure an underlying neoplasm. Reported by: ZEB FINCH MD Electonically Signed: [id number]
== END 2020-10-10 13:15 | disposition home or self-care (01) ==
LOC: BICMAMMO 13:14
PROVIDERS: ATTEND Family Medicine
DX: Z12.31 Encounter for screening mammogram for malignant neoplasm of breast (principal); Z13.820 Encounter for screening for osteoporosis; M85.852 Other specified disorders of bone density and structure, left thigh; Z78.0 Asymptomatic menopausal state; Z80.3 Family history of malignant neoplasm of breast
CPT/HCPCS: 77063; 77067; 77080

== ENCOUNTER 2021-03-26 01:43 | Inpatient (IN) | payer MEDICARE, OTHER ==
[2021-03-26 03:00] LABS: #Basophils 0.1 thou/uL (0.0-0.2); #Lymphocytes 1.1 thou/uL (1.20-3.40); #Monocytes 0.5 thou/uL (0.11-0.59); %Basophils 0.7 % (0.0-1.0); %Eosinophils 0.4 % (0.0-10.0); %Monocytes 5.9 % (0.0-10.0); %Neutrophils 78.9 % (42.0-75.0); Hemoglobin 11.1 g/dL (12.0-16.0); Mean Corpuscular HGB CONC 34.4 g/dL (32.0-36.0); Mean Corpuscular Hemoglobin 35.8 pg (27.0-31.0); Mean Platelet Volume 8.1 fL (7.4-10.4); Platelet Count 179 thou/uL (130-400); RBC Distribution Width 14.1 % (11.5-14.5); Red Blood Cell (RBC) Count 3.09 mill/uL (4.20-5.40); White Blood Cell (WBC) Count 7.7 thou/uL (4.8-10.8)
[2021-03-26 03:22] LABS: ALT (SGPT) 29 U/L (8-55); AST (SGOT) 57 U/L (5-34); Albumin 2.8 g/dL (3.4-4.8); Alkaline Phosphatase 96 U/L (40-110); Anion Gap 12 mmol/L (10-20); BUN (Urea Nitrogen) 16 mg/dL (9.8-20.1); Bilirubin, Total 1.2 mg/dL (0.2-1.2); Calc. Creatinine Clearance 0 mL/min (70-130); Calcium 9.4 mg/dL (7.8-10.44); Carbon Dioxide 29 mmol/L (23-31); Chloride 99 mmol/L (98-107); Glucose 144 mg/dL (83-110); Potassium 3.3 mmol/L (3.5-5.1); Protein, Total 6.8 g/dL (5.8-8.1); Sodium 137 mmol/L (136-145)
[2021-03-26] MEDS ORDERED: Furosemide 40 MG/4 ML VIAL ONE (03:45)
[2021-03-26] MEDS ORDERED: Aspirin 325 MG TAB ONE (03:47)
[2021-03-26 05:19] LABS: SARS-CoV-2 NAA Rapid Test Not Detected (NotDetected)
[2021-03-26 07:15] LABS: Troponin I 4.618 ng/mL (< 0.028)
[2021-03-26] MEDS ORDERED: Acetaminophen 325 MG TAB PO PRN (08:33)
[2021-03-26 09:55] LABS: Troponin I 4.476 ng/mL (< 0.028)
[2021-03-26 10:17] VITALS: BMI 26.4
[2021-03-26] MEDS: Aspirin 325 mg Enteric Coated Tablet PO SCH (10:25)
[2021-03-26] MEDS: Furosemide 40 MG/4 ML VIAL SLOW IVP SCH (10:27)
[2021-03-26] MEDS ORDERED: Potassium Chloride 20 MEQ TAB PO SCH (18:30)
[2021-03-27 05:45] LABS: #Basophils 0.1 thou/uL (0.0-0.2); #Eosinphils 0.1 thou/uL (0.0-0.7); #Lymphocytes 1.5 thou/uL (1.20-3.40); #Monocytes 0.7 thou/uL (0.11-0.59); #Neutrophils 4.8 thou/uL (1.40-6.50); %Basophils 0.7 % (0.0-1.0); %Eosinophils 0.9 % (0.0-10.0); %Lymphocytes 21.5 % (21.0-51.0); %Monocytes 9.7 % (0.0-10.0); %Neutrophils 67.3 % (42.0-75.0); Hemoglobin 11.3 g/dL (12.0-16.0); Mean Corpuscular HGB CONC 34.2 g/dL (32.0-36.0); Mean Corpuscular Hemoglobin 35.6 pg (27.0-31.0); Mean Platelet Volume 8.5 fL (7.4-10.4); Platelet Count 161 thou/uL (130-400); RBC Distribution Width 14.5 % (11.5-14.5); Red Blood Cell (RBC) Count 3.17 mill/uL (4.20-5.40); White Blood Cell (WBC) Count 7.1 thou/uL (4.8-10.8)
[2021-03-27 06:04] LABS: Anion Gap 11 mmol/L (10-20); BUN (Urea Nitrogen) 17 mg/dL (9.8-20.1); Calc. Creatinine Clearance 57 mL/min (70-130); Calcium 8.6 mg/dL (7.8-10.44); Carbon Dioxide 30 mmol/L (23-31); Cardiac Risk 3.8 (Less than 4.5); Chloride 101 mmol/L (98-107); Cholesterol 157 mg/dl (< 200 Desired); Glucose 109 mg/dL (83-110); HDL Cholesterol 41 mg/dL (>60 Neg Risk); LDL Cholesterol, Calculated 101 mg/dL; Sodium 139 mmol/L (136-145); Triglycerides 74 mg/dL (Less than 150)
[2021-03-27 06:10] LABS: Potassium 2.9 mmol/L (3.5-5.1)
[2021-03-27] MEDS: Levothyroxine Sodium 100 MCG TAB PO SCH (06:27)
[2021-03-27] MEDS ORDERED: Potassium Chloride 20 MEQ TAB PO SCH (06:30)
[2021-03-27] MEDS ORDERED: Potassium Chloride 40 MEQ in Sodium Chloride 0.9% 250 ML 250 ML IVPB SCH (07:00)
[2021-03-27] MEDS: Aspirin 325 mg Enteric Coated Tablet PO SCH (09:07)
[2021-03-27] MEDS: Cholecalciferol 1,000 UNITS (25 MCG) TAB PO SCH (09:07)
[2021-03-27] MEDS: Folic Acid 1 MG TAB PO SCH (09:07)
[2021-03-27] MEDS: Atenolol 25 MG TAB PO SCH (09:07)
[2021-03-27] MEDS: Multivitamin W/ Minerals 1 TAB PO SCH (09:07)
[2021-03-27] MEDS: Furosemide 40 MG/4 ML VIAL SLOW IVP SCH (09:08)
[2021-03-27] MEDS ORDERED: Polyethylene Glycol 3350 17 GM Packet PO PRN (12:33)
[2021-03-28] MEDS: Levothyroxine Sodium 100 MCG TAB PO SCH (05:28)
[2021-03-28 05:46] LABS: #Eosinphils 0.3 thou/uL (0.0-0.7); #Lymphocytes 1.8 thou/uL (1.20-3.40); #Monocytes 0.7 thou/uL (0.11-0.59); #Neutrophils 4.5 thou/uL (1.40-6.50); %Basophils 0.5 % (0.0-1.0); %Eosinophils 4.3 % (0.0-10.0); %Lymphocytes 24.5 % (21.0-51.0); %Monocytes 9.7 % (0.0-10.0); Hemoglobin 11.4 g/dL (12.0-16.0); Mean Corpuscular HGB CONC 33.6 g/dL (32.0-36.0); Mean Corpuscular Hemoglobin 35.4 pg (27.0-31.0); Mean Platelet Volume 8.4 fL (7.4-10.4); Platelet Count 163 thou/uL (130-400); RBC Distribution Width 14.6 % (11.5-14.5); Red Blood Cell (RBC) Count 3.22 mill/uL (4.20-5.40); White Blood Cell (WBC) Count 7.4 thou/uL (4.8-10.8)
[2021-03-28 06:07] LABS: Anion Gap 12 mmol/L (10-20); BUN (Urea Nitrogen) 17 mg/dL (9.8-20.1); Calc. Creatinine Clearance 58 mL/min (70-130); Calcium 9.1 mg/dL (7.8-10.44); Carbon Dioxide 28 mmol/L (23-31); Chloride 102 mmol/L (98-107); Glucose 106 mg/dL (83-110); Potassium 3.8 mmol/L (3.5-5.1); Sodium 138 mmol/L (136-145)
[2021-03-28] MEDS: Multivitamin W/ Minerals 1 TAB PO SCH (07:29)
[2021-03-28] MEDS: Atenolol 25 MG TAB PO SCH (07:29)
[2021-03-28] MEDS: Aspirin 325 mg Enteric Coated Tablet PO SCH (07:29)
[2021-03-28] MEDS: Folic Acid 1 MG TAB PO SCH (07:30)
[2021-03-28] MEDS: Cholecalciferol 1,000 UNITS (25 MCG) TAB PO SCH (07:30)
[2021-03-28] MEDS: Furosemide 40 MG/4 ML VIAL SLOW IVP SCH (07:31)
[2021-03-28] MEDS ORDERED: Magnesium Oxide 400 MG TAB PO SCH (10:45)
[2021-03-28] MEDS ORDERED: METHOTREXATE SC SCH (12:00)
[2021-03-28] MEDS ORDERED: Furosemide 40 MG/4 ML VIAL SLOW IVP SCH (15:00)
[2021-03-28] MEDS ORDERED: Communication Order-Pharmacy FS SCH (15:00)
[2021-03-28] MEDS ORDERED: Potassium Chloride 20 MEQ TAB PO SCH (15:00)
[2021-03-28] MEDS: Atorvastatin Calcium 40 MG TAB PO SCH (20:16)
[2021-03-28] MEDS: LUNESTA 2 MG PO PRN (21:49)
[2021-03-29] MEDS: Atenolol 25 MG TAB PO SCH (05:46)
[2021-03-29] MEDS: Aspirin 325 mg Enteric Coated Tablet PO SCH (05:47)
[2021-03-29] MEDS: Multivitamin W/ Minerals 1 TAB PO SCH (05:47)
[2021-03-29] MEDS: Cholecalciferol 1,000 UNITS (25 MCG) TAB PO SCH (05:47)
[2021-03-29] MEDS: Folic Acid 1 MG TAB PO SCH (05:47)
[2021-03-29] MEDS: Levothyroxine Sodium 100 MCG TAB PO SCH (05:47)
[2021-03-29] MEDS ORDERED: Sodium Chloride 0.9% 1,000 ML IV SCH ×2 (06:00→10:01)
[2021-03-29 06:01] LABS: Anion Gap 13 mmol/L (10-20); BUN (Urea Nitrogen) 18 mg/dL (9.8-20.1); Calc. Creatinine Clearance 54 mL/min (70-130); Calcium 8.9 mg/dL (7.8-10.44); Carbon Dioxide 27 mmol/L (23-31); Chloride 103 mmol/L (98-107); Glucose 87 mg/dL (83-110); Potassium 3.6 mmol/L (3.5-5.1); Sodium 139 mmol/L (136-145)
[2021-03-29] MEDS ORDERED: Heparin 10,000 UNITS/ 10 ML VIAL ONE (07:40)
[2021-03-29] MEDS ORDERED: Lidocaine 1% (PF) 30 ML VIAL ONE (08:03)
[2021-03-29] MEDS ORDERED: Fentanyl 100 MCG/2 ML VIAL ONE (08:33)
[2021-03-29] MEDS ORDERED: Midazolam HCl 2 mg/2 ml Vial ONE (08:33)
[2021-03-29] MEDS ORDERED: Protamine Sulfate 50 MG/5 ML VIAL ONE (09:24)
[2021-03-29] MEDS ORDERED: Iopamidol 370 76% 100 ML VIAL ONE (09:52)
[2021-03-29] MEDS ORDERED: Iopamidol 370 76% 50 ML VIAL FS ONE (09:52)
[2021-03-29] MEDS ORDERED: Nitroglycerin 0.4 MG TAB (25 Tab Bottle) SL PRN (09:56)
[2021-03-29] MEDS ORDERED: Sodium Chloride 0.9% 200 ML IV PRN (09:56)
[2021-03-29] MEDS: Furosemide 40 MG/4 ML VIAL SLOW IVP SCH (10:23)
[2021-03-29] MEDS: Atorvastatin Calcium 40 MG TAB PO SCH (19:54)
[2021-03-29] MEDS: LUNESTA 2 MG PO PRN (22:17)
[2021-03-30] MEDS: Levothyroxine Sodium 100 MCG TAB PO SCH (06:13)
[2021-03-30 06:34] LABS: Anion Gap 10 mmol/L (10-20); BUN (Urea Nitrogen) 16 mg/dL (9.8-20.1); Calc. Creatinine Clearance 61 mL/min (70-130); Calcium 8.7 mg/dL (7.8-10.44); Carbon Dioxide 28 mmol/L (23-31); Chloride 103 mmol/L (98-107); Glucose 87 mg/dL (83-110); Potassium 3.4 mmol/L (3.5-5.1); Sodium 138 mmol/L (136-145)
[2021-03-30] MEDS ORDERED: Furosemide 40 MG TAB PO SCH (07:30)
[2021-03-30] MEDS: Cholecalciferol 1,000 UNITS (25 MCG) TAB PO SCH (07:47)
[2021-03-30] MEDS: Multivitamin W/ Minerals 1 TAB PO SCH (07:47)
[2021-03-30] MEDS: Atenolol 25 MG TAB PO SCH (07:48)
[2021-03-30] MEDS: Aspirin 325 mg Enteric Coated Tablet PO SCH (07:48)
[2021-03-30] MEDS: Folic Acid 1 MG TAB PO SCH (07:49)
[2021-03-30 07:53] VITALS: BP 124/59
[2021-03-30] MEDS ORDERED: Potassium Chloride 20 MEQ TAB PO SCH (08:00)
[2021-03-30 08:09] VITALS: TEMP 98.3
[2021-03-31] MEDS ORDERED: Potassium Chloride 10 MEQ TAB PO SCH (08:00)
[2021-03-31] MEDS ORDERED: Calcium Carbonate 600 MG TAB PO SCH (09:00)
[2021-04-04] MEDS ORDERED: [UNRECOGNIZED DRUG - OTHER] SQ SCH (09:00)
[2021-04-04] MEDS ORDERED: METHOTREXATE SQ SCH (09:00)
== END 2021-03-30 10:52 | disposition home or self-care (01) | DRG 280 ==
LOC: SUATTDRO 01:43 → ERS 01:43 → 2SW 04:12 → OBSVTOIN 08:32
PROVIDERS: ADMIT Internal Medicine; ATTEND Internal Medicine
PROC: 5A09357 Assistance with Respiratory Ventilation, Less than 24 Consecutive Hours, Continuous Positive Airway Pressure (ICD-10-PCS; 2021-03-26)
PROC: 4A023N8 Measurement of Cardiac Sampling and Pressure, Bilateral, Percutaneous Approach (ICD-10-PCS; principal; 2021-03-29)
PROC: B2111ZZ Fluoroscopy of Multiple Coronary Arteries using Low Osmolar Contrast (ICD-10-PCS; 2021-03-29)
PROC: B2161ZZ Fluoroscopy of Right and Left Heart using Low Osmolar Contrast (ICD-10-PCS; 2021-03-29)
DX: I08.3 Combined rheumatic disorders of mitral, aortic and tricuspid valves (principal); K85.10 Biliary acute pancreatitis without necrosis or infection; I21.A1 Myocardial infarction type 2; K80.42 Calculus of bile duct with acute cholecystitis without obstruction; I50.30 Unspecified diastolic (congestive) heart failure; K21.9 Gastro-esophageal reflux disease without esophagitis; E03.9 Hypothyroidism, unspecified; Z20.822 Contact with and (suspected) exposure to COVID-19; I25.10 Atherosclerotic heart disease of native coronary artery without angina pectoris; M19.90 Unspecified osteoarthritis, unspecified site; K44.9 Diaphragmatic hernia without obstruction or gangrene; E78.00 Pure hypercholesterolemia, unspecified; M06.9 Rheumatoid arthritis, unspecified; I10 Essential (primary) hypertension; Z96.612 Presence of left artificial shoulder joint; Z96.611 Presence of right artificial shoulder joint; E87.6 Hypokalemia; Z88.2 Allergy status to sulfonamides; Z90.49 Acquired absence of other specified parts of digestive tract; Z90.710 Acquired absence of both cervix and uterus; Z98.49 Cataract extraction status, unspecified eye; Z79.82 Long term (current) use of aspirin; Z79.890 Hormone replacement therapy; Z88.5 Allergy status to narcotic agent; Z88.0 Allergy status to penicillin; Z91.040 Latex allergy status
CPT/HCPCS: 0240U; 36415; 71045; 76706; 80048; 80053; 80061; 82553; 83735; 83880; 84484; 85025; 85347; 93005; 93306; 93460; 93561; 93567; 93798; 94760; 96374; 99152; 99153; G0378; J1644; J1940; J2001; J2250; J2720; J3010; J3480; J7050; Q9967; U0002

== ENCOUNTER 2022-03-07 13:27 | Outpatient (CLI) | payer MEDICARE, OTHER | END 2022-03-07 13:28 | disposition home or self-care (01) | LOC: MRI 13:27 | PROVIDERS: ATTEND Family Medicine | DX: R41.82 Altered mental status, unspecified (principal) | CPT/HCPCS: 70551 ==

== ENCOUNTER 2022-04-17 13:24 | Outpatient (CLI) | payer MEDICARE, OTHER | END 2022-04-17 13:25 | disposition home or self-care (01) | LOC: BICRAD 13:24 | PROVIDERS: ATTEND Internal Medicine Rheumatology | DX: M25.572 Pain in left ankle and joints of left foot (principal); M19.072 Primary osteoarthritis, left ankle and foot ==